=== PATIENT | female | born 1995 | race Caucasian/White ===

== ENCOUNTER 2021-04-25 21:22 | Emergency (ER) | payer OTHER ==
[~2021-04-25] VITALS: Ht 160 cm; Wt 104.5 kg
[2021-04-25 22:30] LABS: URINE HCG NEGATIVE (NEG)
[2021-04-25 22:33] LABS: BASOPHILS % (AUTO) 0.3 % (0-1); EOSINOPHILS # (AUTO) 0.1 X10'3 (0-0.9); HEMATOCRIT 41.8 % (35.0-45.0); HEMOGLOBIN 13.8 g/dl (12.0-16.0); LYMPHOCYTES % (AUTO) 21.9 % (21-51); MEAN CORPUSCULAR HEMOGLOBIN 29.5 PG (27.0-31.0); MEAN CORPUSCULAR HGB CONC 32.9 g/dL (33.0-36.5); MEAN CORPUSCULAR VOLUME 89.7 FL (78-98); MEAN PLATELET VOLUME 7.3 FL (7.4-10.4); MONOCYTES # (AUTO) 1.1 X10'3 (0-0.9); MONOCYTES % (AUTO) 7.9 % (2-12); NEUTROPHILS # (AUTO) 9.5 X10'3 (1.8-7.7); NEUTROPHILS % (AUTO) 68.9 % (42-75); PLATELET COUNT 321 X10'3 (140-440); RED BLOOD COUNT 4.67 X10'6 (4.20-5.60); RED CELL DISTRIBUTION WIDTH 13.7 % (11.5-14.5); WHITE BLOOD COUNT 13.9 X10'3 (4.5-11.0)
[2021-04-25 22:42] LABS: COLOR,URINE ORANGE (Yellow); UA COLLECTION TYPE CLN CATCH MIDSTREAM
[2021-04-25 22:43] LABS: CLARITY,URINE CLOUDY (Clear)
[2021-04-25 22:53] LABS: WBC,URINE TNTC /HPF (0-4)
[2021-04-25 22:54] LABS: BACTERIA,URINE 1+ /HPF (Neg); MUCUS STRANDS FEW /LPF (Neg); SQUAMOUS EPITHELIAL CELL,UR FEW /LPF (FEW); WBC CLUMPS,URINE FEW /HPF (NEGATIVE)
[2021-04-25 22:57] LABS: ALANINE AMINOTRANSFERASE 25 U/L (12-78); ALBUMIN 4.1 G/DL (3.4-5.0); ALBUMIN/GLOBULIN RATIO 1.1 (1.1-1.5); ALKALINE PHOSPHATASE 138 IU/L (46-116); ANION GAP 11 (8-16); ASPARTATE AMINO TRANSFERASE 13 U/L (10-37); BILIRUBIN,TOTAL 0.7 MG/DL (0.1-1.0); BLOOD UREA NITROGEN 15 MG/DL (7-18); BUN/CREATININE RATIO 15.6 (6.6-38.0); CALCIUM 8.9 MG/DL (8.5-10.1); CHLORIDE 105 MMOL/L (99-107); CREATININE 0.96 MG/DL (0.40-0.90); GLUCOSE 92 MG/DL (70-104); LIPASE < 50 U/L (73-393); POTASSIUM 3.8 MMOL/L (3.5-5.1); SODIUM 143 MMOL/L (135-145); TOTAL CARBON DIOXIDE 26.9 MMOL/L (24-32); TOTAL PROTEIN 7.9 G/DL (6.4-8.2); eGFR 72 ML/MIN
[2021-04-25] MEDS ORDERED: CefTRIAXone 250MG inj IM ONE (23:35)
[2021-04-25] MEDS ORDERED: metroNIDAZOLE 500mg tablet PO ONE (23:40)
[2021-04-25] MEDS ORDERED: CefTRIAXone 1000mg IM Kit (w/lidocaine diluent) IM ONE (23:40)
[2021-04-25] MEDS ORDERED: fluconazole 100mg tablet PO ONE (23:40)
[2021-04-25] MEDS ORDERED: CEPH-585 PO (23:40)
[2021-04-25] MEDS ORDERED: PHEN-716 PO (23:40)
[2021-04-25] MEDS ORDERED: azithromycin 250mg tablet PO ONE (23:40)
[2021-04-26 00:13] VITALS: BP 128/74
== END 2021-04-26 00:17 | disposition home or self-care (01) ==
LOC: ER 21:22
DX: N39.0 Urinary tract infection, site not specified (principal)
CPT/HCPCS: 36415; 80053; 81001; 81025; 83690; 85025; 87088; 87491; 87591; 96372; 99284; J0696; J3490